=== PATIENT | female | born 1970 | race African-American/Black ===

== ENCOUNTER 2017-06-30 21:45 | Emergency (ER) | payer OTHER ==
[~2017-06-30] VITALS: Ht 162.6 cm; Wt 50.0 kg
[2017-07-01 00:35] VITALS: BP 154/108
[2017-07-01] MEDS ORDERED: TETANUS, DIPHTHERIA, PERTUSSIS VAC/PF 0.5ML (>7YR OLD) IM ONE (04:45)
[2017-07-01] MEDS ORDERED: ACETAMINOPHEN 325MG TABLET PO ONE (04:45)
[2017-07-01] MEDS ORDERED: LIDOCAINE HCL/PF 1% 10 MG/ML 5ML VIAL IJ NR (04:45)
[2017-07-01] MEDS ORDERED: LIDOCAINE HCL 1% 20ML VIAL (Pyxis) INJ INFIL ONE (04:45)
[2017-07-01] MEDS ORDERED: LIDOCAINE HCL/PF 1% 10 MG/ML 5ML VIAL ONE ×2 (07:05→07:08)
== END 2017-07-01 09:35 | disposition home or self-care (01) ==
LOC: ER 21:45
DX: S00.83XA Contusion of other part of head, initial encounter (principal); S01.511A Laceration without foreign body of lip, initial encounter; Y04.1XXA Assault by human bite, initial encounter; Y04.2XXA Assault by strike against or bumped into by another person, initial encounter; Y93.89 Activity, other specified; I10 Essential (primary) hypertension; R90.82 White matter disease, unspecified; Z23 Encounter for immunization; Y92.89 Other specified places as the place of occurrence of the external cause
CPT/HCPCS: 12013; 70450; 90471; 90715; 99284; J3490; Z7610

== ENCOUNTER 2019-02-24 23:46 | Emergency (ER) | payer MEDICAID, OTHER ==
[~2019-02-24] VITALS: Ht 165.1 cm; Wt 60.0 kg
[2019-02-25] MEDS ORDERED: CLONIDINE 0.2MG TABLET PO SCH (01:45)
[2019-02-25 02:25] VITALS: BP 150/90
[2019-02-25 02:34] LABS: CHLORIDE 109 mEq/L (98-107)
== END 2019-02-25 06:53 | disposition left against medical advice (07) ==
LOC: ER 23:46
DX: F10.129 Alcohol abuse with intoxication, unspecified (principal); Y90.8 Blood alcohol level of 240 mg/100 ml or more; I10 Essential (primary) hypertension
CPT/HCPCS: 36415; 80320; 83880; 84484; 99283; G0480